=== PATIENT | female | born 1955 | race African-American/Black ===

== ENCOUNTER 2020-09-13 20:59 | Emergency (ER) | payer MEDICARE, OTHER ==
[2020-09-13] MEDS ORDERED: Tobramycin Sulfate 0.3% Ophth Susp 5 ml Bottle ONE (21:32)
[2020-09-13] MEDS ORDERED: Erythromycin Base 0.5% Ophth Oint 3.5 gm Tube ONE (21:32)
[2020-09-13] MEDS ORDERED: cefTRIAXone\\ROCEPHIN 2 GM VIAL ONE (21:42)
[2020-09-13] MEDS ORDERED: Lidocaine 1% 20 ML MDV ONE (21:42)
[2020-09-13] MEDS ORDERED: metroNIDAZOLE 250 MG TAB ONE (21:42)
[2020-09-13] MEDS ORDERED: HYDROcodone/Acetaminophen 5/325 mg Tablet ONE (22:27)
[2020-09-13] MEDS ORDERED: Ibuprofen 600 MG TAB ONE (22:27)
== END 2020-09-13 22:35 | disposition home or self-care (01) ==
LOC: MADERS 20:59
DX: H16.001 Unspecified corneal ulcer, right eye (principal); H44.001 Unspecified purulent endophthalmitis, right eye; I10 Essential (primary) hypertension; E78.5 Hyperlipidemia, unspecified; E78.00 Pure hypercholesterolemia, unspecified; F17.210 Nicotine dependence, cigarettes, uncomplicated
CPT/HCPCS: 96372; 99283; J0696